=== PATIENT | female | born 1960 | race Native Hawaiian/Other Pacific Islander ===

== ENCOUNTER 2017-05-20 18:53 | Emergency (ER) | payer BC ==
[2017-05-20 19:08] VITALS: BMI 25.7
[2017-05-20 19:13] VITALS: TEMP 98.4
[2017-05-20] MEDS ORDERED: Sodium Chloride 0.9% 1,000 ML IV STA (19:56)
--- NOTE | 2017-05-20 20:00 | C.PDOC ---
History Of Present Illness 57 y/o female with a PMHx of hypertension and diabetes presents to the ED with generalized weakness, lightheadedness, headache, neck pain, and nausea, onset suddenly around 5:00pm. Denies any associated fall or injury. No recent fever, cough, congestion, or runny nose. Patient states her head feels somewhat heavy and her face and ears feel warm to touch. She did not take any pain medications prior to arrival. No recent travel. No sick contacts. Time Seen by Provider: 05/20/17 19:44 Chief Complaint (Nursing): Palpitations History Per: Patient History/Exam Limitations: no limitations Onset/Duration Of Symptoms: Hrs (x3) Current Symptoms Are (Timing): Still Present Past Medical History Reviewed: Historical Data, Nursing Documentation, Vital Signs Vital Signs: Last Vital Signs Temp 98.4 F 05/20/17 19:08 Pulse 67 05/20/17 20:54 Resp 18 05/20/17 20:54 BP 144/82 05/20/17 20:54 Pulse Ox 100 05/20/17 20:54 - Medical History PMH: Diabetes, HTN Surgical History: Cholecystectomy, Hernia Repair Other Surgeries: cerebral aneurysm clipping - [facility] Procedures LAPAROSCOPIC CHOLECYSTECTOMY (10/24/12) Family History: States: No Known Family Hx - Social History Hx Tobacco Use: No Hx Alcohol Use: No Hx Substance Use: No - Immunization History Hx Influenza Vaccination: Yes Hx Pneumococcal Vaccination: Yes Review Of Systems Except As Marked, All Systems Reviewed And Found Negative. Constitutional: Positive for: Weakness. Negative for: Fever ENT: Positive for: Other (Ears/face feel warm). Negative for: Nose Congestion Cardiovascular: Positive for: Light Headedness Respiratory: Negative for: Cough Gastrointestinal: Positive for: Nausea Musculoskeletal: Positive for: Neck Pain Neurological: Positive for: Headache. Negative for: Numbness, Incoordination, Change in Speech, Confusion Physical Exam - Physical Exam Additional Physical Exam Comments: Constitutional: No acute distress. Head: Normocephalic. Atraumatic. Eyes: PERRL. EOMI. ENT: Moist mucous membranes. TM's appear normal bilaterally. Neck: Supple. No midline tenderness. Negative Kernig's and Brudzinski's sign. No pulsatile mass. No carotid bruits. Cardiovascular: Regular rate. Radial pulses 2+ bilaterally. Chest: No tenderness. Respiratory: Clear to auscultation bilaterally. GI: Soft. Nontender. Nondistended. Back: No midline tenderness. No CVA tenderness. Musculoskeletal: No tenderness of extremities. Mild pitting edema to bilateral lower extremities. Skin: No rash. Neurologic: Alert, no focal deficit. ED Course And Treatment - Laboratory Results Result Diagrams: 05/20/17 20:01 05/20/17 20:01 O2 Sat by Pulse Oximetry: 99 (RA) Pulse Ox Interpretation: Normal Medical Decision Making Medical Decision Making: Impression: 57 y/o F with generalized weakness, headache, neck pain, and nausea Time: 19:55 Initial Plan: * CMP * CBC * Lipase * Flu swab * Urinalysis * Chest x-ray * EKG * NS IV fluids 1L/hr * Toradol 30 mg IV * Zofran 8 mg IV * Reevaluation EKG: Normal sinus rhythm, regular rate, no ST/T wave changes Chest X-Ray: No acute disease Patient states she feels much better. Vital signs normalized. Will discharge home, f/u primary care, return to ED for worsening pain, dyspnea, vomiting, headache, or any other problem. Disposition - Disposition Referrals: Susi Gil MD [Medical Doctor] - Disposition: HOME/ ROUTINE Disposition Time: 21:36 Condition: STABLE Prescriptions: Ibuprofen [Motrin] 1 tab PO Q6 #30 tab Ondansetron ODT [Zofran ODT] 4 mg PO Q8 #12 odt Instructions: Generalized Weakness, Weakness (ED) Forms: [facility] (Greek) - Clinical Impression Clinical Impression: General weakness - Scribe Statement The provider has reviewed the documentation as recorded by the Scribe (Amy Dewey) Provider Attestation: All medical record entries made by the Scribe were at my direction and personally dictated by me. I have reviewed the chart and agree that the record accurately reflects my personal performance of the history, physical exam, medical decision making, and the department course for this patient. I have also personally directed, reviewed, and agree with the discharge instructions and disposition.
[2017-05-20 20:05] LABS: BASO % 0.6 % (0.0-2.0); EOS # 0.1 K/uL (0.0-0.7); EOS % 1.1 % (0.0-4.0); HEMOGLOBIN 12.1 g/dL (11.0-16.0); LYMPH # 2.2 K/uL (1.0-4.3); MEAN CORPUSCULAR HEMOGLOBIN 26.8 pg (27.0-31.0); MEAN CORPUSCULAR HGB CONC 32.8 g/dL (33.0-37.0); MEAN PLATELET VOLUME 7.5 fL (7.2-11.7); MONO # 0.3 K/uL (0.0-0.8); MONO % 5.5 % (0.0-10.0); NEUT # 2.7 K/uL (1.8-7.0); NEUT % 50.8 % (50.0-75.0); NRBC % 0.1 % (0.0-2.0); RBC 4.49 Mil/uL (3.80-5.20); RED CELL DISTRIBUTION WIDTH 14.5 % (11.5-14.5); WHITE BLOOD COUNT 5.3 K/uL (4.8-10.8)
[2017-05-20 20:06] LABS: HCG,QUALITATIVE URINE NEGATIVE (NEGATIVE)
[2017-05-20] MEDS ORDERED: Sodium Chloride 0.9% 1,000 ML ONE (20:06)
[2017-05-20 20:07] LABS: MEAN CELL VOLUME 81.8 fL (81.0-99.0)
[2017-05-20 20:08] LABS: SQUAMOUS EPITHIAL < 1 /hpf (0-5); URINE BILIRUBIN NEGATIVE (NEGATIVE); URINE BLOOD 1+ (NEGATIVE); URINE CLARITY Clear (Clear); URINE COLOR Colorless (YELLOW); URINE GLUCOSE (UA) NORMAL (Normal); URINE PROTEIN NEGATIVE (NEGATIVE); URINE UROBILINOGEN NORMAL mg/dL (0.2-1.0)
[2017-05-20 20:10] LABS: URINE LEUKOCYTE ESTERASE NEGATIVE Leu/uL (Negative)
[2017-05-20 20:14] VITALS: RESP 18
[2017-05-20 20:21] LABS: ALB/GLOB RATIO 0.9 (1.0-2.1); ALBUMIN 4.5 g/dL (3.5-5.0); CALCIUM 8.9 mg/dl (8.6-10.4); GFR AFRICAN-AMERICAN > 60; GFR NON-AFRICAN AMERICAN > 60; LIPASE 265 U/L (23-300)
[2017-05-20 20:25] LABS: ALT/SGPT 13 U/L (9-52); AST/SGOT 25 U/L (14-36); BLOOD UREA NITROGEN 14 mg/dL (7-17)
[2017-05-20 20:55] VITALS: BP 144/82; PULSE 67
[2017-05-20 21:39] VITALS: O2SAT 99
--- NOTE | 2017-05-21 11:25 | RAD ---
Chest x-ray single frontal view History: Weakness. Comparison: None available. Findings: No focal infiltrate or effusion. Minimal linear atelectasis at the left lung base. Tortuous aorta. Degenerative changes in the spine. Impression: No focal infiltrate or effusion. Minimal linear atelectasis at the left lung base. Tortuous aorta.
--- NOTE | 2017-05-21 11:52 | CARD ---
APPROVED REPORT EKG Measurement Heart [id number] <Conclusion> Normal sinus rhythm Normal ECG
== END 2017-05-20 21:51 | disposition home or self-care (01) ==
LOC: C.ER 18:53
DX: R53.1 Weakness (principal)
CPT/HCPCS: 71045; 80053; 81001; 83690; 84703; 85025; 87804; 93005; 96361; 96374; 96375; 99284; J1885; J2405; J7040